=== PATIENT | female | born 1975 | race Hispanic/Latino ===

== ENCOUNTER 2021-10-03 09:38 | Emergency (ER) | payer OTHER ==
--- OUTSIDE RECORDS SUMMARY | 2021-10-03 09:41 | XMS REPORT | Continuity of Care Document ---
:1975 Author Organization [facility] t Address [address] [place] [address] Care Team Providers Name Role Phone Rodríguez DO Attending Clinician Provider, Urgent Care Attending Clinician Unavailable HUBERT, A Attending Clinician Unavailable Hubert PABear Attending Clinician Doctor Unassigned, Name Attending Clinician Unavailable Pcp, Does Not Have A Attending Clinician Lab, Fam Pob I Attending Clinician Unavailable Pob1, Care Clinic Attending Clinician Unavailable ANENE Attending Clinician Unavailable Anene HELIARC WELDER Attending Clinician Problems This patient has no known problems. Allergies, Adverse Reactions, Alerts Allergy Allergy Status Severity Reaction(s) Onset Inactive Treating Comm ents Source Name Type Date Date Clinician NO KNOWN Drug Active Univers ALLERGIE Class [facility] Medications This patient has no known medications. Procedures This patient has no known procedures. Encounters Start End Encounter Admission Attending Care Care Encounter Source Date/Time Date/Time Type Type Clinicians Facility Department ID 2021-07-01 Emergency [facility] [id number] Univers 21:42:19 [facility] 2020-06-09 2020-06-09 Emergency [facility] [id number] 16:34:00 18:47:00 Davy Radha [id number] [place] [id number] [place] [id number] 2020-06-09 2020-06-09 Urgent Provider, [facility] [id number] 15:30:35 18:07:10 Care [facility] [id number] Care [place] [id number] Professio [phone] nal [address] One 2020-06-09 2020-06-09 Outpatient R [facility] [id number] Univers 15:40:00 15:40:00 ity [facility] 2020-06-09 2020-06-09 [facility] [id number] Univers 15:40:00 15:40:00 JD ity [facility] 2020-06-09 2020-06-09 [facility] [id number] 00:00:00 00:00:00 Jd [facility] [id number] Surgical [id number] Specialti [phone] es [address] [place] 2020-06-09 2020-06-09 Orders Doctor BURAK [id number] 00:00:00 00:00:00 Only Unassigned, BENEDICT [id number] [facility] [id number] 2020-04-02 2020-04-02 Outpatient R [facility] [id number] Univers 08:00:00 08:00:00 [id number] ity [facility] 2020-04-02 2020-04-02 Outpatient R [facility] [id number] Univers 08:00:00 08:00:00 ity of [facility] 2020-03-27 2020-03-27 Outpatient R [facility] [id number] Univers 08:40:00 08:40:00 [id number] ity [facility] 2020-03-27 2020-03-27 Outpatient R [facility] [id number] Univers 08:40:00 08:40:00 ity of [facility] 2020-03-26 2020-03-26 Outpatient R [facility] [id number] Univers 14:40:00 14:40:00 [id number] ity of [facility] 2020-03-26 2020-03-26 Outpatient R [facility] [id number] Univers 14:40:00 14:40:00 ity of [facility] 2020-03-20 2020-03-20 Telephone Pcp, BURAK [id number] 00:00:00 00:00:00 Patient BENEDICT [id number] Does [facility] [id number] Have A [id number] 2020-03-20 2020-03-20 Telephone Lab, [facility] [id number] 00:00:00 00:00:00 Fam Pob I Health [id number] [place] [id number] Professio [phone] [place] [address] Office Building [facility] 2020-03-19 2020-03-19 Outpatient R [facility] [id number] Univers 10:50:00 10:50:00 ity [facility] 2020-03-19 2020-03-19 Outpatient R [facility] [id number] Univers 10:50:00 10:50:00 [id number] [facility] 2020-03-19 2020-03-19 Laboratory Lab, [facility] [id number] 10:09:08 10:29:08 Only Fam Pob I Health [id number] [place] [id number] Professio [phone] [place] [address] [address] 2020-03-11 2020-03-11 Urgent Pob1, Acute [facility] [id number] 14:31:41 14:51:41 [facility] [id number] [place] [id number] Professio [phone] [place] [address] [address] 2020-03-11 2020-03-11 Outpatient R [facility] [id number] Univers 14:40:00 14:40:00 [id number] ity [facility] 2020-03-11 2020-03-11 Outpatient R [facility] [id number] Univers 14:40:00 14:40:00 ity [facility] 2020-03-11 2020-03-11 Outpatient R BIANCA, [facility] [id number] Univers 14:20:00 14:20:00 LILIANE ity [facility] 2020-03-11 2020-03-11 Letter Bianca [facility] [id number] 00:00:00 00:00:00 (Out) [facility] [id number] [place] [id number] [place] [phone] nal [address] One Results This patient has no known results.
[2021-10-03 11:21] LABS: Urine Blood Negative (Negative); Urine Glucose Negative (Negative); Urine Protein Negative (Negative); Urine Specific Gravity 1.015 (1.005-1.030)
--- NOTE | 2021-10-03 11:51 | RAD REPORT ---
EXAM DESCRIPTION: CT - Spine Lumbar Wo Con - 10/03/2021 11:41 am CLINICAL HISTORY: Radiculopathy. LOWER BACK PAIN COMPARISON: CT ABD PELVIS W CONTRAST dated 02/12/2012 TECHNIQUE: Axial noncontrast CT imaging of the lumbar spine was performed with coronal and sagittal re-formatted images. All CT scans are performed using dose optimization technique as appropriate and may include automated exposure control or mA/KV adjustment according to patient size. FINDINGS: No acute lumbar spine fracture seen. No aggressive marrow pattern is seen. Paraspinal tissues are normal in thickness. No paraspinal abscess or hematoma seen. Left kidney appea rs absent. 7 mm degenerative anterolisthesis of L5 on S1 is present with prominent facet hypertrophy changes and a posterior diffuse disc bulge. IMPRESSION: No acute lumbar spine abnormality. Moderately severe L5-S1 spondylosis is present with posterior disc bulge and facet hypertrophy.
[2021-10-03] MEDS ORDERED: dexAMETHasone 4 MG/ML VIAL ONE (12:12)
[2021-10-03] MEDS ORDERED: KETOROLAC 30 MG/ML INJ ONE (12:12)
--- NOTE | 2021-10-03 12:35 | EDPHYS ---
Physician Documentation [facility] Name: Brenda Kan Age: 46 yrs Sex: Female : 1975 Arrival Date: 10/03/2021 Time: 09:41 Bed 10 Private MD: ED Physician Arjun Ibarra HPI: 10/03 11:14 This 46 yrs old Female presents to ER via Ambulatory with complaints of Low rn Back Pain. 11:14 The patient presents with pain that is acute, with no known mechanism of injury. The rn symptoms are located in the low back. The pain radiates to the right leg and left leg. Onset: The symptoms/episode began/occurred 1 month(s) ago. Modifying factors: The patient symptoms are alleviated by nothing, the patient symptoms are aggravated by any movement. Associated signs and symptoms: Pertinent negatives: abdominal pain, fever, hematuria, incontinence, nausea, numbness, tingling, urinary retention, vomiting, weakness. Severity of symptoms: At their worst the symptoms were moderate, in the emergency department the symptoms have improved. The patient has experienced similar episodes in the past. The patient has not recently seen a physician. Patient reports 1 month of left lower back pain, radiates to both legs and feels achy. States legs feel weak but when pressed states more achiness and pain not true weakness. Is ambulatory and no recent falls. Denies any recent trauma. Reports this has been going on for 1 month and finally felt the need to be evaluated. No bowel or bladder complaints/incontinence/retention. Reports feels burning sensation from back to back of both thighs. Has had back injections in the past but no surgery.. Historical: - Allergies: 09:59 No Known Allergies; ss - Home Meds: :59 None [Active]; ss - PMHx: 09:59 Endometrosis; ss - PSHx: 09:59 partial hysterectomy; Kidey donor; ss - Immunization history:: Adult Immunizations up to date. - Social history:: Smoking status: Patient denies any tobacco usage or history of. - Family history:: not pertinent. - Hospitalizations: : No recent hospitalization is reported. ROS: 11:14 Constitutional: Negative for fever, chills, and weight loss, Eyes: Negative for injury, rn pain, redness, and discharge, Neck: Negative for injury, pain, and swelling, Cardiovascular: Negative for chest pain, palpitations, and edema, Respiratory: Negative for shortness of breath, cough, wheezing, and pleuritic chest pain, Abdomen/GI: Negative for abdominal pain, nausea, vomiting, diarrhea, and constipation, Back: Positive for lower back pain, negative for injury : Negative for injury, bleeding, discharge, and swelling, MS/Extremity: Negative for injury and deformity, Skin: Negative for injury, rash, and discoloration, Neuro: Negative for headache, weakness, numbness, tingling, and seizure. Exam: 11:14 Constitutional: This is a well developed, well nourished patient who is awake, alert, rn and in no acute distress. Head/Face: Normocephalic, atraumatic. Cardiovascular: Regular rate and rhythm. No pulse deficits. Respiratory: No increased work of breathing, no retractions or nasal flaring. Abdomen/GI: Soft, non-tender Back: No spinal tenderness. No costovertebral tenderness. Mild left lower back tenderness without swelling or mass Skin: Warm, dry with normal turgor. Normal color with no rashes, no lesions, and no evidence of cellulitis. MS/ Extremity: Pulses equal, no cyanosis. Neurovascular intact. Full, normal range of motion. Equal circumference. Neuro: Awake and alert, GCS 15, oriented to person, place, time, and situation. Cranial nerves II-XII grossly intact. Motor strength 5/5 in all extremities. Sensory grossly intact. Cerebellar exam normal. Normal gait. Normal lower extremity reflexes Vital Signs: 09:57 Pulse 72; Resp 16; Temp 98.2(O); Pulse Ox 99% on R/A; Weight 86.18 kg; Height 5 ft. 0 ss in. (152.40 cm); Pain 8/10; 09:59 BP 100 / 85; ss 12:17 BP 109 / 88; Pulse 76; Resp 18; Pulse Ox 100% on R/A; Pain 6/10; ld1 09:57 Body Mass Index 37.11 (86.18 kg, 152.40 cm) ss NIH Stroke Scale Scores: 10:50 NIHSS Score: 0 ss MDM: 10:50 Patient medically screened. rn 12:11 Differential diagnosis: strain, sciatica, Herniated disc UTI. Data reviewed: vital rn signs, nurses notes, lab test result(s), radiologic studies, CT scan, and as a result, I will discharge patient. Counseling: I had a detailed discussion with the patient and/or guardian regarding: the historical points, exam findings, and any diagnostic results supporting the discharge/admit diagnosis, lab results, radiology results, the need for outpatient follow up, to return to the emergency department if symptoms worsen or persist or if there are any questions or concerns that arise at home. Response to treatment: the patient's symptoms have mildly improved after treatment, and as a result, I will discharge patient. Special discussion: I discussed with the patient/guardian in detail that at this point there is no indication for admission to the hospital. It is understood, however, that if the symptoms persist or worsen the patient needs to return immediately for re-evaluation. Based on the history and exam findings, there is no indication for further emergent testing or inpatient evaluation. I discussed with the patient/guardian the need to see the back specialist for further evaluation of the symptoms. 10/03 11:20 Order name: Urine Dipstick-Ancillary; Complete Time: 11:29 EDMS 10/03 11:02 Order name: CT Lumbar Spine Wo Con; Complete Time: 12:07 rn 10/03 11:03 Order name: Urine Dipstick-Ancillary (obtain specimen); Complete Time: 11:17 rn Administered Medications: 12:16 Drug: Decadron (dexamethasone) 10 mg Route: IM; Site: left gluteus; ld1 12:16 Drug: Ketorolac 30 mg Route: IM; Site: left gluteus; ld1 Disposition Summary: 10/03/21 12:35 Discharge Ordered Location: Home rn Problem: an ongoing problem rn Symptoms: have improved rn Condition: Stable rn Diagnosis - Radiculopathy, lumbosacral region rn Followup: rn - With: Private Physician - When: As needed - Reason: Recheck today's complaints, Re-evaluation by your physician Discharge Instructions: - Discharge Summary Sheet rn - Lumbosacral Radiculopathy rn - Pinched Nerve rn Forms: - Medication Reconciliation Form rn - Thank You Letter rn - Antibiotic rn anesthesiology - Prescription Opioid Use rn Prescriptions: - Cyclobenzaprine 10 mg Oral Tablet - take 1 tablet by ORAL route every 8 hours As needed; 15 tablet; Refills: 0, rn Product Selection Permitted - Medrol (Rajan) 4 mg Oral Tablets, Dose Pack - take 1 tablet by ORAL route as directed - follow package instructions; 1 rn packet; Refills: 0, Product Selection Permitted NIH Stroke Scale - NIH Stroke Score Date: 10/03/2021 Time: 10:50 Total Score = 0 1a. Level of Consciousness (LOC) - 0(Alert) 1b. Level of Consciousness (LOC) (Month \T\ Age) - 0(Both) 1c. LOC Commands (Open \T\ Closes Eyes/Vault Mechanic) - 0(Both) 2. Best Gaze (Lateral Gaze Paresis) - 0(Normal) 3. Visual Field Loss - 0(No visual loss) 4. Facial Palsy - 0(Normal) 5a. Left Arm: Motor (10-second hold) - 0(No drift) 5b. Right Arm: Motor (10-second hold) - 0(No drift) 6a. Left Leg: Motor (5-second hold - always test supine) - 0(No drift) 6b. Right Leg: Motor (5-second hold - always test supine) - 0(No drift) 7. Limb Ataxia (finger/nose \T\ heel/richardson - test with eyes open) - 0(Absent) 8. Sensory Loss (pinprick arms/legs/face) - 0(Normal) 9. Best Language: Aphasia (description/naming/reading) - 0(No aphasia) 10. Dysarthria (speech clarity - read or repeat words) - 0(Normal) 11. Extinction and Inattention (visual/tactile/auditory/spatial/personal) - 0(No abnormality) Initials: ss Signatures: Dispatcher [employer] EDMS Arjun Ibarra MD MD rn Smirch, Shelby, RN RN ss Jessa Moreno RN RN ld1 Corrections: (The following items were deleted from the chart) 11:17 11:03 Urine Test ordered. rn ss
--- NOTE | 2021-10-03 12:35 | ER ---
Nurse's Notes [facility] Name: Brenda Kan Age: 46 yrs Sex: Female : 1975 Arrival Date: 10/03/2021 Time: 09:41 Bed 10 Private MD: Diagnosis: Radiculopathy, lumbosacral region Presentation: 10/03 09:57 Chief complaint: Patient states: L low back pain, described as sharp that began this ss morning. Pt states that both of her legs feel weak. Denies urinary s/s. Coronavirus screen: Client denies travel out of the [place] in the last 14 days. Ebola Screen: Patient denies exposure to infectious person. Patient denies travel to an Ebola-affected area in the 21 days before illness onset. Initial Sepsis Screen: Does the patient meet any 2 criteria? No. Patient's initial sepsis screen is negative. Does the patient have a suspected source of infection? No. Patient's initial sepsis screen is negative. Risk Assessment: Do you want to hurt yourself or someone else? Patient reports no desire to harm self or others. Onset of symptoms was October 03, 2021. 09:57 Method Of Arrival: Ambulatory ss 09:57 Acuity: ALEN 3 ss Historical: - Allergies: 09:59 No Known Allergies; ss - Home Meds: 09:59 None [Active]; ss - PMHx: 09:59 Endometrosis; ss - PSHx: 09:59 partial hysterectomy; Kidey donor; ss - Immunization history:: Adult Immunizations up to date. - Social history:: Smoking status: Patient denies any tobacco usage or history of. - Family history:: not pertinent. - Hospitalizations: : No recent hospitalization is reported. Screenin:30 Abuse screen: Denies threats or abuse. Denies injuries from another. Nutritional ss screening: No deficits noted. Tuberculosis screening: Never had TB. Fall Risk None identified. Assessment: 10:50 VAN Scoring: Arm Drift: Patients demonstrates NO arm weakness. Patient is VAN Negative. ss Visual Disturbance: No visual disturbance noted. Aphasia: No aphasia noted. Neglect: No neglect noted. 10:50 General: Appears in no apparent distress. comfortable, Behavior is calm, cooperative, ss Denies fever, feeling ill, fatigue, chills. Pain: Complains of pain in L low back Pain currently is 8 out of 10 on a pain scale. Quality of pain is described as sharp, Pain began "this morning when I woke up" per patient Is continuous. Neuro: Level of Consciousness is awake, alert, obeys commands. Cardiovascular: Capillary refill < 3 seconds is brisk in bilateral. Respiratory: Airway is patent Respiratory effort is even, unlabored, Respiratory pattern is regular, symmetrical. EENT: Nares are clear Oral mucosa is moist. Derm: Skin is intact, is healthy with good turgor, Skin is dry, Skin is pink, warm \\T\\ dry. normal. 12:17 General: Appears in no apparent distress. comfortable, Behavior is calm, cooperative, ld1 appropriate for age. Pain: Complains of pain in left leg and right leg. Neuro: Level of Consciousness is awake, alert, obeys commands, Oriented to person, place, time, situation. Cardiovascular: Capillary refill < 3 seconds Patient's skin is warm and dry. Respiratory: Airway is patent Respiratory effort is even, unlabored, Respiratory pattern is regular, symmetrical. Vital Signs: 09:57 Pulse 72; Resp 16; Temp 98.2(O); Pulse Ox 99% on R/A; Weight 86.18 kg; Height 5 ft. 0 ss in. (152.40 cm); Pain 8/10; 09:59 BP 100 / 85; ss 12:17 BP 109 / 88; Pulse 76; Resp 18; Pulse Ox 100% on R/A; Pain 6/10; ld1 09:57 Body Mass Index 37.11 (86.18 kg, 152.40 cm) ss NIH Stroke Scale Scores: 10:50 NIHSS Score: 0 ss ED Course: 09:41 Patient arrived in ED. as 09:59 Triage completed. ss 09:59 Arm band placed on right wrist. ss 10:50 Arjun Ibarra MD is Attending Physician. rn 11:29 Conchita Castillo RN is Primary Nurse. ss 11:30 Patient has correct armband on for positive identification. Bed in low position. Call ss light in reach. 11:30 No provider procedures requiring assistance completed. Patient did not have IV access ss during this emergency room visit. 11:40 CT Lumbar Spine Wo Con In Process Unspecified. EDMS Administered Medications: 12:16 Drug: Decadron (dexamethasone) 10 mg Route: IM; Site: left gluteus; ld1 12:16 Drug: Ketorolac 30 mg Route: IM; Site: left gluteus; ld1 Outcome: 12:35 Discharge ordered by . rn 12:59 Discharged to home ambulatory. ld1 12:59 Condition: stable 12:59 Discharge instructions given to patient, Instructed on discharge instructions, follow up and referral plans. medication usage, Demonstrated understanding of instructions, follow-up care, medications, Prescriptions given X 2. 13:00 Patient left the ED. ld1 NIH Stroke Scale - NIH Stroke Score Date: 10/03/2021 Time: 10:50 Total Score = 0 1a. Level of Consciousness (LOC) - 0(Alert) 1b. Level of Consciousness (LOC) (Month \\T\\ Age) - 0(Both) 1c. LOC Commands (Open \\T\\ Closes Eyes/Loan Review Officer) - 0(Both) 2. Best Gaze (Lateral Gaze Paresis) - 0(Normal) 3. Visual Field Loss - 0(No visual loss) 4. Facial Palsy - 0(Normal) 5a. Left Arm: Motor (10-second hold) - 0(No drift) 5b. Right Arm: Motor (10-second hold) - 0(No drift) 6a. Left Leg: Motor (5-second hold - always test supine) - 0(No drift) 6b. Right Leg: Motor (5-second hold - always test supine) - 0(No drift) 7. Limb Ataxia (finger/nose \\T\\ heel/richardson - test with eyes open) - 0(Absent) 8. Sensory Loss (pinprick arms/legs/face) - 0(Normal) 9. Best Language: Aphasia (description/naming/reading) - 0(No aphasia) 10. Dysarthria (speech clarity - read or repeat words) - 0(Normal) 11. Extinction and Inattention (visual/tactile/auditory/spatial/personal) - 0(No abnormality) Initials: ss Signatures: Dispatcher [employer] Ofelia Antoine Roman, MD MD rn Smirch, Shelby, RN RN ss Jessa Moreno RN RN ld1 Corrections: (The following items were deleted from the chart) 10:00 09:57 BP 146 / 100; Pulse 72bpm; Resp 16bpm; Pulse Ox 99% RA; Temp 98.2F Oral; ss 86.18 kg; Height 5 ft. 0 in.; BMI: 37.1; Pain 8/10; ss
[2021-10-03 13:14] VITALS: TEMP 98.2
[2021-10-03 13:16] VITALS: BP 109/88; O2SAT 100
== END 2021-10-03 13:00 | disposition home or self-care (01) ==
LOC: ER 09:38
DX: M54.17 Radiculopathy, lumbosacral region (principal)
CPT/HCPCS: 81003; 72131; J1100; 96372; 99283

== ENCOUNTER 2022-11-17 10:53 | Emergency (ER) | payer OTHER ==
--- OUTSIDE RECORDS SUMMARY | 2022-11-17 10:57 | XMS REPORT | Continuity of Care Document ---
:1975 Author Organization [facility] t Address [address] [place] [address] Care Team Providers Name Role Phone VICTORINOMICHAEL Attending Clinician Unavailable Davy Rodríguez DO Attending Clinician Provider, [facility] Attending Clinician Unavailable ANA MARÍA MEIER Attending Clinician Unavailable Ana María Hines Attending Clinician Doctor Unassigned, [place] Attending Clinician Unavailable Pcp, Patient Does Not Have A Attending Clinician +[id number]- [phone] Lab, Adc Fam Pob I Attending Clinician Unavailable Pob1, Acute Care Clinic Attending Clinician Unavailable KRISTAL VALENZUELA Attending Clinician Unavailable Kristal Cervantes Attending Clinician Payers Payer Name Policy Type Policy Number Effective Date Expiration Date S tori MARIA E [facility] 9 [id number] 2022 00:00:00 SILVER $30 4000 BASIC 94 Problems This patient has no known problems. Allergies, Adverse Reactions, Alerts Allergy Allergy Status Severity Reaction(s) Onset Inactive Treating Comm ents Source Name Type Date Date Clinician NO KNOWN Drug Active Univers ALLERGIE Class [facility] Medications This patient has no known medications. Procedures This patient has no known procedures. Encounters Start End Encounter Admission Attending Care Care Encounter Source Date/Time Date/Time Type Type Clinicians Facility Department ID 2021-07-01 Emergency [facility] [id number] Univers 21:42:19 [facility] 2022-11-27 2022-11-27 Outpatient HAKEEMMONSERRAT Reyes [id number] Monserrat 13:00:00 13:00:00 MICHAELPeng Walkerashu patel 2020-06-09 2020-06-09 [facility] [id number] 16:34:00 18:47:00 Davy Garcia [id number] [place] [id number] [place] [id number] 2020-06-09 2020-06-09 Urgent Provider, [facility] [id number] 15:30:35 18:07:10 Care [facility] [id number] Care Rena Lara [id number] Professio [phone] nal [address] 2020-06-09 2020-06-09 [facility] [id number] Univers 15:40:00 15:40:00 ANA MAR[facility] 2020-06-09 2020-06-09 [facility] [id number] 00:00:00 00:00:00 Ana María A [facility] [id number] Surgical [id number] Specialti [id number] Rena Lara 2020-06-09 2020-06-09 Orders Doctor BURAK [id number] 00:00:00 00:00:00 Only Unassigned, BENEDICT [id number] [place] [facility] [id number] 2020-04-02 2020-04-02 Outpatient R [facility] [id number] Univers 08:00:00 08:00:00 [facility] 2020-03-27 2020-03-27 Outpatient R [facility] [id number] Univers 08:40:00 08:40:00 ity [facility] 2020-03-26 2020-03-26 Outpatient R [facility] [id number] Univers 14:40:00 14:40:00 ity [facility] 2020-03-20 2020-03-20 Telephone PcpBURAK [id number] 00:00:00 00:00:00 Patient BENEDICT [id number] Does Not HOSPITAL [id number] Have A [id number] 2020-03-20 2020-03-20 Telephone Lab, [facility] [id number] 00:00:00 00:00:00 Fam Pob I Health [id number] Rena Lara [id number] Professio [phone] nal [address] 2020-03-19 2020-03-19 Outpatient R [facility] [id number] Univers 10:50:00 10:50:00 [facility] 2020-03-19 2020-03-19 Laboratory Lab, [facility] [id number] 10:09:08 10:29:08 Only Fam Pob I Health [id number] Rena Lara [id number] Professio [phone] nal [facility] [address] 2020-03-11 2020-03-11 Urgent Pob1, Acute [facility] [id number] 14:31:41 14:51:41 Care [facility] [id number] Rena Lara [id number] Professio [phone] nal [facility] [address] 2020-03-11 2020-03-11 Outpatient R [facility] [id number] Univers 14:40:00 14:40:00 [facility] 2020-03-11 2020-03-11 [facility] [id number] Univers 14:20:00 14:20:00 KRISTAL [facility] 2020-03-11 2020-03-11 Letter [facility] [id number] 00:00:00 00:00:00 (Out) [facility] [id number] Rena Lara [id number] Professio [id number] nal [facility] Results This patient has no known results.
[2022-11-17] MEDS ORDERED: ONDANSETRON 4 MG/2 ML VIAL ONE (11:52)
[2022-11-17] MEDS ORDERED: MORPHINE 4 MG/ML SYR ONE (11:52)
[2022-11-17] MEDS ORDERED: NA CHLORIDE 0.9% 1,000 ML ONE (11:53)
[2022-11-17 12:08] LABS: Absolute Lymphocytes (CBC) 0.6 K/uL (0.7-4.9); Hematocrit 43.9 % (36.0-45.0); Lymphocytes % 7.9 % (15.3-44.8); MPV 8.6 fL (7.6-11.3); RBC Red Blood Cell Count 4.72 M/uL (3.86-4.86)
[2022-11-17 12:26] LABS: Albumin 3.4 g/dL (3.4-5.0); Bilirubin Direct 0.1 mg/dL (0-0.2); Bilirubin Total 0.4 mg/dL (0.2-1.0); Magnesium 1.9 mg/dL (1.6-2.4); Potassium 3.8 mEq/L (3.5-5.1); Protein, Total 6.6 g/dL (6.4-8.2); Troponin High Sensitivity 4.1 pg/mL (<58.9)
--- NOTE | 2022-11-17 12:31 | RAD REPORT ---
[facility] DES[facility] 12[facility]20 pm CLINICAL HISTORY: CHEST PAIN COMPARISON: Chest Single View dated 09/24/2016; CHEST SINGLE VIEW dated 06/17/2006 TECHNIQUE: Portable AP view of the chest. FINDINGS: The lungs are clear. No pneumothorax or effusion. The cardiomediastinal contours are unrem arkable. IMPRESSION: No acute cardiopulmonary process.
[2022-11-17 12:45] LABS: SARS-COV-2 RT PCR NEGATIVE (NEGATIVE)
--- NOTE | 2022-11-17 13:10 | EDPHYS ---
Physician Documentation [facility] Name: Brenda Kan Age: 47 yrs Sex: Female : 1975 Arrival Date: 11/17/2022 Time: 10:57 Bed 6 Private MD: Santana Mahmood ED Physician Lonnie Moralez HPI: 11/17 11:05 This 47 yrs old Female presents to ER via Wheelchair with complaints of Chest jh7 Pain, Vomiting. 11:05 Onset: The symptoms/episode began/occurred 2 day(s) ago. jh7 11:05 Associated signs and symptoms: Pertinent positives: chest pain, headache, vomiting, jh7 body aches, Pertinent negatives: abdominal pain, diarrhea, fever. 11:05 47-year-old female complains of chest pain, headache, and body aches x2 days. Also [facility] reports 1 episode of vomiting this morning. Denies diarrhea, fever, and abdominal pain. Denies any past medical history. Patient of Dr. Nassar.. Historical: - Allergies: 11:05 No Known Allergies; hb - PMHx: 11:05 Endometrosis; hb - PSHx: 11:05 Kidey donor; partial hysterectomy; hb - Immunization history:: Adult Immunizations up to date. - Social history:: Smoking status: Patient denies any tobacco usage or history of. ROS: 11:05 Eyes: Negative for injury, pain, redness, and discharge, ENT: Negative for injury, jh7 pain, and discharge, Neck: Negative for injury, pain, and swelling, Respiratory: Negative for shortness of breath, cough, wheezing, and pleuritic chest pain. 11:05 Back: Negative for injury and pain, MS/Extremity: Negative for injury and deformity, Skin: Negative for injury, rash, and discoloration. 11:05 Constitutional: Positive for body aches, malaise, Negative for fever. 11:05 Cardiovascular: Positive for chest pain, Negative for palpitations. 11:05 Abdomen/GI: Positive for nausea and vomiting, Negative for abdominal pain, diarrhea. 11:05 Neuro: 11:05 All other systems are negative. Exam: 11:05 Head/Face: Normocephalic, atraumatic. Eyes: Pupils equal round and reactive to light, jh7 extra-ocular motions intact. Lids and lashes normal. Conjunctiva and sclera are non-icteric and not injected. Cornea within normal limits. Periorbital areas with no swelling, redness, or edema. Neck: Trachea midline, no thyromegaly or masses palpated, and no cervical lymphadenopathy. Supple, full range of motion without nuchal rigidity, or vertebral point tenderness. No Meningismus. Cardiovascular: Regular rate and rhythm with a normal S1 and S2. No gallops, murmurs, or rubs. Normal PMI, no JVD. No pulse deficits. Respiratory: Lungs have equal breath sounds bilaterally, clear to auscultation and percussion. No rales, rhonchi or wheezes noted. No increased work of breathing, no retractions or nasal flaring. Abdomen/GI: Soft, non-tender, with normal bowel sounds. No distension or tympany. No guarding or rebound. No evidence of tenderness throughout. Back: No spinal tenderness. No costovertebral tenderness. Full range of motion. Skin: Warm, dry with normal turgor. Normal color with no rashes, no lesions, and no evidence of cellulitis. MS/ Extremity: Pulses equal, no cyanosis. Neurovascular intact. Full, normal range of motion. Neuro: Awake and alert, GCS 15, oriented to person, place, time, and situation. Motor strength 5/5 in all extremities. Sensory grossly intact. Normal gait. 11:05 Constitutional: The patient appears alert, awake, in obvious pain, uncomfortable. Vital Signs: 11:03 BP 124 / 63; Pulse 76; Resp 18; Temp 98.8(TE); Pulse Ox 98% on R/A; Weight 81.65 kg; hb Height 5 ft. 0 in. ; Pain 7/10; 12:15 BP 129 / 83; Pulse 72; Resp 16; Pulse Ox 98% ; bp 11:03 Body Mass Index 35.15 (81.65 kg, 152.4 cm) hb 11:03 Pain Scale: Adult hb MDM: 10:[address] [facility] 11/17 11:06 Order name: CBC with Diff; Complete Time: 12:24 [facility] 11/17 11:06 Order name: EKG; Complete Time: 11:07 [facility] 11/17 11:06 Order name: Cardiac monitoring; Complete Time: 11:36 [facility] 11/17 11:06 Order name: EKG - Nurse/Tech; Complete Time: 11:09 [facility] 11/17 11:06 Order name: IV Saline Lock; Complete Time: 12:18 [facility] 11/17 11:06 Order name: Labs collected and sent; Complete Time: 12:18 [facility] 11/17 11:06 Order name: O2 Per Protocol; Complete Time: 11:37 [facility] 11/17 11:06 Order name: O2 Sat Monitoring; Complete Time: 11:37 [facility] 11/17 11:06 Order name: Basic Metabolic Panel; Complete Time: 12:32 [facility] 11/17 11:06 Order name: LFT's; Complete Time: 12:32 [facility] 11/17 11:06 Order name: Magnesium; Complete Time: 12:32 [facility] 11/17 11:06 Order name: Troponin HS; Complete Time: 12:32 [facility] 11/17 11:06 Order name: Lipase; Complete Time: 12:32 [facility] 11/17 11:06 Order name: XRAY Chest (1 view); Complete Time: 12:32 [facility] 11/17 11:06 Order name: COVID-19/FLU A+B; Complete Time: 12:57 [facility] EC:05 Rate is 82 beats/min. Rhythm is regular. QRS [place] is Normal. DE interval is normal at [facility] 140 msec. QRS interval is normal at 70 msec. QT interval is normal at 368 msec. No Q waves. T waves are Normal. Clinical impression: NSR w/ Non-specific ST/T Changes. Administered Medications: 11:40 Drug: morphine IVP or IV 4 mg Route: IVP; Infused Over: 4 mins; Site: right forearm; bp 13:09 Follow up: Response: Pain is decreased bp 11:40 Drug: Ondansetron IVP 4 mg Route: IVP; Site: right forearm; bp 13:10 Follow up: Response: No adverse reaction bp 11:40 Drug: NS 0.9% IV 1000 ml Route: IV; Rate: 1 bolus; Site: right forearm; bp 12:45 Drug: Famotidine IVP 20 mg Route: IVP; Site: right forearm; bp Disposition Summary: 11/17/22 13:10 Discharge Ordered Location: Home [facility] Problem: [facility] Symptoms: have improved [facility] Condition: Stable [facility] Diagnosis - Viral Syndrome [facility] - Flu-like illness [facility] Followup: [facility] - With: Santana Mahmood MD - When: 2 - 3 days - Reason: Recheck today's complaints Forms: - Medication Reconciliation Form 7 - Thank You Letter 7 - Antibiotic Education [facility] - Prescription Opioid Use [facility] Signatures: Dispatcher [employer] Ivana Beltran, RN RN Jj Veras RN RN bp Hazel Husain, PUTTYING AND CALKING SUPERVISOR PUTTYING AND CALKING SUPERVISOR [facility] Corrections: (The following items were deleted from the chart) 11:29 11:05 Associated signs and symptoms: Pertinent positives: chest pain, headache, 7 vomiting, body aches, Pertinent negatives: abdominal pain, diarrhea, fever, 7
--- NOTE | 2022-11-17 13:10 | ER ---
Nurse's Notes [facility] Name: Brenda Kan Age: 47 yrs Sex: Female : 1975 Arrival Date: 11/17/2022 Time: 10:57 Bed 6 Private MD: Santana Mahmood Diagnosis: Viral Syndrome;Flu-like illness Presentation: 11/17 11:03 Chief complaint: Chest pain, headache, fever, body aches, and nausea x 2 days, vomit x hb 1 today. Coronavirus screen: Client presents with at least one sign or symptom that may indicate coronavirus-19. Standard/surgical mask placed on the client. Provider contacted for isolation considerations. Ebola Screen: No symptoms or risks identified at this time. Initial Sepsis Screen: Does the patient meet any 2 criteria? No. Patient's initial sepsis screen is negative. Does the patient have a suspected source of infection? No. Patient's initial sepsis screen is negative. Risk Assessment: Do you want to hurt yourself or someone else? Patient reports no desire to harm self or others. Onset of symptoms was November 16, 2022. 11:03 Method Of Arrival: Wheelchair hb 11:03 Acuity: ALEN 3 hb Triage Assessment: 11:05 General: Appears in no apparent distress. Behavior is cooperative, anxious. Pain: Pain hb currently is 7 out of 10 on a pain scale. Neuro: Level of Consciousness is awake, alert, obeys commands, Oriented to person, place, time, situation. Cardiovascular: Reports chest pain, Patient's skin is warm and dry. Respiratory: Respiratory effort is even, unlabored, Respiratory pattern is regular, symmetrical. GI: Reports nausea, vomiting. Historical: - Allergies: 11:05 No Known Allergies; hb - PMHx: 11:05 Endometrosis; hb - PSHx: 11:05 Kidey donor; partial hysterectomy; hb - Immunization history:: Adult Immunizations up to date. - Social history:: Smoking status: Patient denies any tobacco usage or history of. Screenin:00 [facility] ED Fall Risk Assessment (Adult) History of falling in the last 3 months, bp including since admission No falls in past 3 months (0 pts). Abuse screen: Denies threats or abuse. Denies injuries from another. Nutritional screening: No deficits noted. Tuberculosis screening: No symptoms or risk factors identified. Assessment: 11:10 General: SEE TRIAGE NOTE. bp Vital Signs: 11:03 BP 124 / 63; Pulse 76; Resp 18; Temp 98.8(TE); Pulse Ox 98% on R/A; Weight 81.65 kg; hb Height 5 ft. 0 in. ; Pain 7/10; 12:15 BP 129 / 83; Pulse 72; Resp 16; Pulse Ox 98% ; bp 11:03 Body Mass Index 35.15 (81.65 kg, 152.4 cm) hb 11:03 Pain Scale: Adult hb ED Course: 10:57 Patient arrived in ED. mr 10:57 Santana Mahmood MD is Private Physician. mr 10:57 Hazel [facility]NP [facility] 10:57 Lonnie Moralez MD is Attending Physician. 7 11:05 Triage completed. hb 11:06 Arm band placed on. hb 11:09 EKG completed in triage. Results shown to MD. hb 11:24 Patient has correct armband on for positive identification. Bed in low position. Side mm9 rails up X 1. Adult w/ patient. Warm blanket given. Client placed on continuous cardiac and pulse oximetry monitoring. NIBP monitoring applied. couture alterations dressmaker on. Pulse ox on. NIBP on. 11:24 EKG done, by ED staff, reviewed by Lonnie Moralez MD. mm9 11:36 Jj Millan, RN is Primary Nurse. bp 11:40 Inserted saline lock: 20 gauge in right forearm, using aseptic technique. Blood bp collected. 12:02 COVID-19/FLU A+B Sent. ks8 12:22 XRAY Chest (1 view) In Process Unspecified. EDMS 13:09 Santana Mahmood MD is Referral Physician. [facility] Administered Medications: 11:40 Drug: morphine IVP or IV 4 mg Route: IVP; Infused Over: 4 mins; Site: right forearm; bp 13:09 Follow up: Response: Pain is decreased bp 11:40 Drug: Ondansetron IVP 4 mg Route: IVP; Site: right forearm; bp 13:10 Follow up: Response: No adverse reaction bp 11:40 Drug: NS 0.9% IV 1000 ml Route: IV; Rate: 1 bolus; Site: right forearm; bp 12:45 Drug: Famotidine IVP 20 mg Route: IVP; Site: right forearm; bp Outcome: 13:10 Discharge ordered by jhIsidro Signatures: Dispatcher [employer] Laurel Hodges Heather, RN RN Jj Veras RN RN bp Hadash, Jennifer, CORPORATE TUTOR CORPORATE TUTOR 7 Maday Coronel mm9 Joaquin Grant pa8
[2022-11-17] MEDS ORDERED: FAMOTIDINE 20 MG/2 ML VIAL IV ONE (13:11)
[2022-11-17 15:27] VITALS: TEMP 98.8
[2022-11-17 15:29] VITALS: BP 111/78; O2SAT 99
== END 2022-11-17 14:17 | disposition home or self-care (01) ==
LOC: ER 10:53
DX: J11.1 Influenza due to unidentified influenza virus with other respiratory manifestations (principal); B34.9 Viral infection, unspecified; Z20.822 Contact with and (suspected) exposure to COVID-19
CPT/HCPCS: 96361; 85025; 80048; 36415; 83735; 80076; 84484; 83690; 0240U; 71045; 96375; 96374; 99285; J2405; J7030

== ENCOUNTER 2023-03-29 11:14 | Emergency (ER) | payer OTHER ==
--- OUTSIDE RECORDS SUMMARY | 2023-03-29 11:19 | XMS REPORT | Continuity of Care Document ---
:1975 Author Organization Formerly [facility] t Address [address] [facility] [address] [place] [address] Care Team Providers Name Role Phone MICHAEL GLEASON Attending Clinician Unavailable BETH SRIVASTAVA Attending Clinician Unavailable KIYA CADET Attending Clinician Unavailable KAMRAN MCKEON Attending Clinician Unavailable LAB90 Attending Clinician Unavailable Davy Rodríguez DO Attending Clinician Provider, [facility] Attending Clinician Unavailable ANA MARÍA MEIER Attending Clinician Unavailable Ana María Hines Attending Clinician Doctor Unassigned, [place] Attending Clinician Unavailable Pcp, Patient Does Not Have A Attending Clinician +[id number] [phone] Lab, Adc Fam Pob I Attending Clinician Unavailable Pob1, Acute Care Clinic Attending Clinician Unavailable KRISTAL VALENZUELA Attending Clinician Unavailable Kristal Cervantes Attending Clinician Payers Payer Name Policy Type Policy Number Effective Date Expiration Date S tori AETSIRIA MP CVS 9 [id number] 2022 00:00:00 SILVER $30 [id number] BASIC 94 Problems This patient has no known problems. Allergies, Adverse Reactions, Alerts Allergy Allergy Status Severity Reaction(s) Onset Inactive Treating Comm ents Source Name Type Date Date Clinician NO KNOWN Drug Active Univers ALLERGIE Class ity of S [facility] Social History Social Habit Start Date Stop Date Quantity Comments Source Gender identity Monserrat berg - External Sexual orientation Monserrat Garcia - External Alcohol intake 2023-02-26 2023-02-26 .14 /d Monserrat murray - 00:00:00 00:00:00 External History of Social 2022-11-24 2022-11-24 Monserrat Garcia - function 00:00:00 00:00:00 External Sex [birth year] Jose Garcia - 00:00:00 00:00:00 External Smoking Status Start Date Stop Date Source Never smoked tobacco Monserrat piña - External Medications Ordered Filled Start Stop Current Ordering Indication Dosage Frequency Signature Comments Components Source Medication Medication Date Date Medication? Clinician (SIG) Name Name Phentermine Yes [id number] 1{tbl} Take 1 Monserrat HCl 8 MG 6-14 tablet by Seybol d oral Tablet 00:00: mouth 2 - 00 times Externa daily l Phentermine 2022-0 Yes [id number] 60{tbl} Take 60 Monserrat HCl 8 MG 5-22 tablets by Seybo ld oral Tablet 00:00: mouth 2 - 00 times Externa daily l Semaglutide 2022-0 Yes [id number] .25mg Inject Monserrat -Weight 5-22 0.25 mg Seybold Management 00:00: into the - (Wegovy) 00 skin once Manager Retail Sales a 0.25 a week l MG/0.5ML subcutaneou s Solution Auto-inject or Semaglutide 2022-0 Yes [id number] .25mg Inject Monserrat -Weight 5-22 0.25 mg Seybold Management 00:00: into the - (Wegovy) 00 skin once Manager [employer] a 0.25 a week l MG/0.5ML subcutaneou s Solution Auto-inject or methylPREDN 2022-0 Yes [id number] 1{shiraz} Take 1 shiraz Monserrat ISolone 4 4-28 by mouth Seybol d MG oral 00:00: See Admin - Tablet 00 Instructio Externa Therapy ns Use as l Pack directed Amoxicillin 2022-0 Yes [id number] 500mg Take 1 Monserrat (AMOXIL) 4-28 capsule Seybold 500 MG oral 00:00: (500 mg - Capsule 00 total) by Externa mouth 3 l times daily methylPREDN 2022-0 Yes [id number] 1{shiraz} Take 1 shiraz Monserrat ISolone 4 4-28 by mouth Seybol d MG oral 00:00: See Admin - Tablet 00 Instructio Externa Therapy ns Use as l Pack directed Amoxicillin 2022-0 Yes [id number] 500mg Take 1 Monserrat (AMOXIL) 4-28 capsule Seybold 500 MG oral 00:00: (500 mg - Capsule 00 total) by Externa mouth 3 l times daily methylPREDN 2022-0 Yes [id number] 1{shiraz} Take 1 shiraz Monserrat ISolone 4 4-28 by mouth Seybol d MG oral 00:00: See Admin - Tablet 00 Instructio Externa Therapy ns Use as l Pack directed Amoxicillin 2022-0 Yes [id number] 500mg Take 1 Monserrat (AMOXIL) 4-28 capsule Seybold 500 MG oral 00:00: (500 mg - Capsule 00 total) by Externa mouth 3 l times daily Diethylprop 2022-0 Yes [id number] 1{tbl} Take 1 Monserrat ion HCl CR 4-24 tablet by Seyb old 75 MG oral 00:00: mouth - TABLET SR 00 every Externa 24 HR morning l Diethylprop 2022-0 Yes [id number] 1{tbl} Take 1 Monserrat ion HCl CR 4-24 tablet by Seyb old 75 MG oral 00:00: mouth - TABLET SR 00 every Externa 24 HR morning l Diethylprop 2022-0 2022- No [id number] 1{tbl} Take 1 Monserrat ion HCl CR 4-24 05-22 tablet by Sey bold 75 MG oral 00:00: 00:00 mouth - TABLET SR 00 :00 every Externa 24 HR morning l Trulicity 2022-0 Yes [id number] .75mg Inject Monserrat 0.75 3-27 0.75 mg Seybold MG/0.5ML 00:00: into the - subcutaneou 00 skin once Ext trevor s Solution a week l Pen-injecto r Trulicity 2022-0 Yes [id number] .75mg Inject Monserrat 0.75 3-27 0.75 mg Seybold MG/0.5ML 00:00: into the - subcutaneou 00 skin once Ext trevor s Solution a week l Pen-injecto r Trulicity 2022-0 2022- No [id number] .75mg Inject Monserrat 0.75 3-27 04-28 0.75 mg Seybold MG/0.5ML 00:00: 00:00 into the - subcutaneou 00 :00 skin once Ext trevor s Solution a week l Pen-injecto r Famotidine 0 Yes 20mg Take 20 mg K elsey (PEPCID) 20 3-17 by mouth 2 Se ybold MG oral 00:00: times - tablet 00 daily Externa l Ondansetron 0 Yes Monserrat (ZOFRAN) 4 3-17 Seybold MG oral 00:00: - TABLET 00 Externa DISPERSIBLE l Famotidine 0 Yes 20mg Take 1 Kelse y (PEPCID) 20 3-17 tablet (20 Se ybold MG oral 00:00: mg total) - tablet 00 by mouth 2 Externa times l daily Ondansetron 0 Yes Monserrat (ZOFRAN) 4 3-17 Seybold MG oral 00:00: - TABLET 00 Externa DISPERSIBLE l Famotidine 0 2022- No 20mg Take 1 Rachel ey (PEPCID) 20 3-17 04-28 tablet (20 S eybold MG oral 00:00: 00:00 mg total) - tablet 00 :00 by mouth 2 Externa times l daily Ondansetron 0 2022- No Kelse y (ZOFRAN) 4 3-17 04-28 Seybold MG oral 00:00: 00:00 - TABLET 00 :00 Externa DISPERSIBLE l Vital Signs Vital Name Observation Time Observation Value Comments Source Systolic blood 2023-01-22 17:52:00 128 mm[Hg] Monserrat Monroeybold - pressure External Diastolic blood 2023-01-22 17:52:00 74 mm[Hg] Kita chaidez Seybold - pressure External Heart rate 2023-01-22 17:52:00 68 /min Monserrat erickson - External Body temperature 2023-01-22 17:52:00 36.44 Kathleen Rachel chamberlain Seybold - External Respiratory rate 2023-01-22 17:52:00 16 /min Rachel chamberlain Seybold - External Body height 2023-01-22 17:52:00 152.4 cm Monserrat S eybold - External Body weight 2023-01-22 17:52:00 82.101 kg Monserrat S eybold - External BMI 2023-01-22 17:52:00 35.35 kg/m2 Monserrat S eybold - External Oxygen saturation in 2023-01-22 17:52:00 96 /min Monserrat Seybold - Arterial blood by External Pulse oximetry Systolic blood 2022-12-29 13:52:00 114 mm[Hg] Monserrat Seybold - pressure External Diastolic blood 2022-12-29 13:52:00 80 mm[Hg] Josese y Seybold - pressure External Heart rate 2022-12-29 13:52:00 59 /min Monserrat Smith eybold - External Body temperature 2022-12-29 13:52:00 35.89 Kathleen Rachel ey Seybold - External Respiratory rate 2022-12-29 13:52:00 15 /min Rachel ey Seybold - External Body height 2022-12-29 13:52:00 152.4 cm Monserrat Smith eybold - External Body weight 2022-12-29 13:52:00 81.647 kg Monserrat S eybold - External BMI 2022-12-29 13:52:00 35.15 kg/m2 Monserrat S eybold - External BMI 2022-12-25 17:53:00 34.76 kg/m2 Monserrat Smith eybold - External Oxygen saturation in 2022-12-25 17:53:00 100 /min Monserrat Jose - Arterial blood by External Pulse oximetry Systolic blood 2022-12-25 17:53:00 118 mm[Hg] Monserrat Seybold - pressure External Diastolic blood 2022-12-25 17:53:00 74 mm[Hg] Kita y Seybold - pressure External Heart rate 2022-12-25 17:53:00 65 /min Monserrat Smith eybold - External Body temperature 2022-12-25 17:53:00 36.72 Kathleen Rachel ey Seybold - External Respiratory rate 2022-12-25 17:53:00 16 /min Rachel ey Seybold - External Body height 2022-12-25 17:53:00 152.4 cm Monserrat Smith eybold - External Body weight 2022-12-25 17:53:00 80.74 kg Monserrat Smith eybold - External Systolic blood 2022-11-27 17:56:00 105 mm[Hg] Monserrat Seybold - pressure External Diastolic blood 2022-11-27 17:56:00 59 mm[Hg] Kita y Seybold - pressure External Heart rate 2022-11-27 17:56:00 79 /min Monserrat Smiht eybold - External Body temperature 2022-11-27 17:56:00 37.11 Kathleen Rachel ey Seybold - External Respiratory rate 2022-11-27 17:56:00 14 /min Rachel chamberlain Seybold - External Body height 2022-11-27 17:56:00 152.4 cm Monserrat Smith eybold - External Body weight 2022-11-27 17:56:00 85.276 kg Monserrat Smith eybold - External BMI 2022-11-27 17:56:00 36.72 kg/m2 Monserrat Smith eybold - External Oxygen saturation in 2022-11-27 17:56:00 99 /min Monserrat Aaronayana - Arterial blood by External Pulse oximetry Procedures This patient has no known procedures. Encounters Start End Encounter Admission Attending Care Care Encounter Source Date/Time Date/Time Type Type Clinicians Facility Department ID 2021-07-01 Emergency [facility] [id number] Univers 21:42:19 [facility] 2023-03-29 2023-03-29 Outpatient MONSERRAT GLEASON [id number] Monserrat 00:00:00 00:00:00 MICHAEL Seybol d 2023-03-09 2023-03-09 Outpatient MONSERRAT GLEASON [id number] Monserrat 14:00:00 14:00:00 MICHAEL Seybol d 2023-02-26 2023-02-26 Outpatient MONSERRAT SRIVASTAVA [id number] Monserrat 14:20:00 14:20:00 BETH Seybol d 2023-02-26 2023-02-26 Outpatient MONSERRAT ARMAS [id number] Monserrat 13:40:00 13:40:00 Seybol d 2023-02-26 2023-02-26 Outpatient MONSERRAT GLEASON [id number] Monserrat 13:00:00 13:00:00 MICHAEL Seybol d 2023-02-26 2023-02-26 Outpatient CAROLAMONSERRAT WALL [id number] Monserrat 00:00:00 00:00:00 BETH Seybol d 2023-02-19 2023-02-19 Outpatient S[facility] [id number] Julián 14:38:59 14:38:59 0619 F Micheal 2023-02-12 2023-02-12 Outpatient MONSERRAT CADET [id number] Monserrat 15:15:00 15:15:00 KIYA Seybol d 2023-02-12 2023-02-12 Outpatient HAKEEML, MONSERRAT ARMAS [id number] Monserrat 00:00:00 00:00:00 MICHAEL Seybol d 2023-01-31 2023-01-31 Outpatient PREMONSERRAT IVEY [id number] Monserrat 00:00:00 00:00:00 KAMRAN Seybol d 2023-01-22 2023-01-22 Outpatient VICTORINO, MONSERRAT ARMAS [id number] Monserrat 13:00:00 13:00:00 MICHAEL Seybol d 2022-12-29 2022-12-29 Outpatient HAKEEML, MONSERRAT ARMAS [id number] Monserrat 09:00:00 09:00:00 MICHAEL Seybol d 2022-12-25 2022-12-25 Outpatient HUNDL, MONSERRAT ARMAS [id number] Monserrat 13:00:00 13:00:00 MICHAEL Seybol d 2022-12-21 2022-12-21 Outpatient LAB90 MONSERRAT ARMAS [id number] Monserrat 16:20:00 16:20:00 Seybol d 2022-12-13 2022-12-13 Outpatient HAKEEML, MONSERRAT ARMAS [id number] Monserrat 00:00:00 00:00:00 MICHAEL Seybol d 2022-12-01 2022-12-01 Outpatient HAKEEML, MONSERRAT ARMAS [id number] Monserrat 00:00:00 00:00:00 MICHAEL Seybol d 2022-11-28 2022-11-28 Outpatient LAB90 MONSERRAT ARMAS [id number] Monserrat 08:40:00 08:40:00 Seybol d 2022-11-27 2022-11-27 Outpatient MONSERRAT GLEASON MONSERRAT [id number] Monserrat 13:00:00 13:00:00 MICHAEL patel 2020-06-09 2020-06-09 Emergency Rodríguez, [facility] [id number] 16:34:00 18:47:00 Davybayron Garcia [id number] [place] [id number] [place] [id number] 2020-06-09 2020-06-09 Urgent Provider, [facility] [id number] 15:30:35 18:07:10 Care [facility] [id number] Care [place] [id number] [facility] [id number] nal [address] 2020-06-09 2020-06-09 [facility] [id number] Univers 15:40:00 15:40:00 ANA MARÍA strange [facility] 2020-06-09 2020-06-09 [facility] [id number] 00:00:00 00:00:00 [facility] [id number] Surgical [id number] Specialti [id number] [address] 2020-06-09 2020-06-09 Orders Doctor BURAK [id number] 00:00:00 00:00:00 Only Unassigned, BENEDICT [id number] [place] [facility] 4.2.7.2.686 [id number] 2020-04-02 2020-04-02 Outpatient R [facility] [id number] Univers 08:00:00 08:00:00 ity [facility] 2020-03-27 2020-03-27 Outpatient R [facility] [id number] Univers 08:40:00 08:40:00 ity [facility] 2020-03-26 2020-03-26 Outpatient R [facility] [id number] Univers 14:40:00 14:40:00 ity [facility] 2020-03-20 2020-03-20 Telephone Pcp, [place] [id number] 00:00:00 00:00:00 Patient BENEDICT [id number] Does Not HOSPITAL 4.2.7.2.686 Have A [id number] 2020-03-20 2020-03-20 Telephone Lab, [facility] [id number] 00:00:00 00:00:00 Fam Pob I Health [id number] [place] [id number] Professio [id number] nal [facility] [address] 2020-03-19 2020-03-19 Outpatient R [facility] [id number] Univers 10:50:00 10:50:00 [facility] 2020-03-19 2020-03-19 Laboratory Lab, [facility] [id number] 10:09:08 10:29:08 Only Fam Pob I Health [id number] [place] [id number] Professio [id number] nal [facility] [address] 2020-03-11 2020-03-11 Urgent Pob1, Acute [facility] [id number] 14:31:41 14:51:41 [facility] Health [id number] [place] [id number] Professio [id number] [place] [address] [address] 2020-03-11 2020-03-11 Outpatient R [facility] [id number] Univers 14:40:00 14:40:00 [facility] 2020-03-11 2020-03-11 Outpatient R GUS [facility] [id number] Univers 14:20:00 14:20:00 KRISTAL [facility] 2020-03-11 2020-03-11 Letter [facility] [id number] 00:00:00 00:00:00 (Out) Kristal Health [id number] [place] [id number] Professio [phone] nal [facility] [address] Results This patient has no known results.
[2023-03-29] MEDS ORDERED: ONDANSETRON 4 MG/2 ML VIAL ONE (11:46)
[2023-03-29] MEDS ORDERED: MORPHINE 4 MG/ML SYR ONE (11:46)
--- NOTE | 2023-03-29 12:10 | RAD REPORT ---
EXAM DESCRIPTION: RAD - Chest Single View - 03/29/2023 11:50 am CLINICAL HISTORY: CHEST PAIN Chest pain. COMPARISON: Chest Single View dated 11/17/2022; Chest Single View dated 09/24/2016; CHEST SINGLE VIEW dated 06/17/2006 FINDINGS: Portable technique limits examination quality. The lungs are grossly clear. The heart is normal in size. No displaced fractures. IMPRESSION: No acute intrathoracic process suspected.
[2023-03-29 12:28] LABS: Absolute Lymphocytes (CBC) 1.6 K/uL (0.7-4.9); Hematocrit 40.9 % (36.0-45.0); Lymphocytes % 25.4 % (15.3-44.8); MCV 93.1 fL (80-100); MPV 9.2 fL (7.6-11.3)
[2023-03-29 12:48] LABS: Protime INR 1.32
[2023-03-29 12:50] LABS: ALT/SGPT 56 U/L (13-56); AST/SGOT 35 U/L (15-37); Albumin 3.2 g/dL (3.4-5.0); Alkaline Phosphatase 99 U/L (45-117); BUN Blood Urea Nitrogen 9 mg/dL (7-18); Bicarbonate 27 mEq/L (21-32); Bilirubin Total 0.3 mg/dL (0.2-1.0); Glomerular Filtration Rate 91 ml/min (=/>90); Glucose Level 91 mg/dL (74-106); Magnesium 1.9 mg/dL (1.6-2.4); NT PRO-BNP 168 pg/mL (<125); Potassium 4.2 mEq/L (3.5-5.1); Protein, Total 6.5 g/dL (6.4-8.2); Sodium Level 139 mEq/L (136-145); Troponin High Sensitivity 3.8 pg/mL (<58.9)
[2023-03-29 12:51] LABS: Bilirubin Direct < 0.1 mg/dL (0-0.2); Bilirubin Indirect, Calculated ND mg/dL (0.2-0.8)
--- NOTE | 2023-03-29 13:19 | ER ---
Nurse's Notes [facility] Name: Brenda Kan Age: 47 yrs Sex: Female : 1975 Arrival Date: 03/29/2023 Time: 11:14 Bed 17 Private MD: MICHAEL GLEASON Diagnosis: Chest pain, unspecified Presentation: 03/29 11:25 Chief complaint: Patient states: PATIENT STATES CHEST PAIN X 3 DAYS ON LEFT SIDE. WORSE db WITH EXERTION AND CONSTANT PAIN. Coronavirus screen: Vaccine status: Patient reports receiving the 2nd dose of the covid vaccine. Client denies travel out of the [place] in the last 14 days. At this time, the client does not indicate any symptoms associated with coronavirus-19. Ebola Screen: Patient negative for fever greater than or equal to 101.5 degrees Fahrenheit, and additional compatible Ebola Virus Disease symptoms Patient denies exposure to infectious person. Patient denies travel to an Ebola-affected area in the 21 days before illness onset. No symptoms or risks identified at this time. Initial Sepsis Screen: Does the patient meet any 2 criteria? No. Patient's initial sepsis screen is negative. Does the patient have a suspected source of infection? No. Patient's initial sepsis screen is negative. Risk Assessment: Do you want to hurt yourself or someone else? Patient reports no desire to harm self or others. Onset of symptoms was March 27, 2023. 11:25 Method Of Arrival: Ambulatory db 11:25 Acuity: ALEN 2 db Triage Assessment: 11:30 General: Appears in no apparent distress. uncomfortable, Behavior is calm, cooperative. db Pain: Complains of pain in chest. Cardiovascular: Reports chest pain. Respiratory: Airway is patent Respiratory effort is even, unlabored, Respiratory pattern is regular, symmetrical. 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 - Social history:: Smoking status: Patient denies any tobacco usage or history of. Screenin:00 [facility] ED Fall Risk Assessment (Adult) History of falling in the last 3 months, db including since admission No falls in past 3 months (0 pts) Confusion or Disorientation No (0 pts) Intoxicated or Sedated No (0 pts) Impaired Gait No (0 pts) Mobility Assist Device Used No (0 pt) Altered Elimination No (0 pt) Score/Fall Risk Level 0 - 2 = Low Risk Oriented to surroundings, Maintained a safe environment. Abuse screen: Denies threats or abuse. Denies injuries from another. Nutritional screening: No deficits noted. Tuberculosis screening: No symptoms or risk factors identified. Assessment: 11:15 Reassessment: Patient appears in no apparent distress at this time. Patient and/or db family updated on plan of care and expected duration. Pain level reassessed. Patient is alert, oriented x 3, equal unlabored respirations, skin warm/dry/pink. CHEST PAIN. General: Appears in no apparent distress. comfortable, Behavior is calm, cooperative. Pain: Complains of pain in chest Pain radiates to chest Pain began gradually. Neuro: Level of Consciousness is awake, alert, obeys commands, Oriented to person, place, time, situation, Speech is normal. Cardiovascular: Chest pain. Respiratory: Airway is patent Respiratory effort is even, unlabored, Respiratory pattern is regular, symmetrical. 12:15 Reassessment: Patient appears in no apparent distress at this time. Patient and/or db family updated on plan of care and expected duration. Pain level reassessed. Patient is alert, oriented x 3, equal unlabored respirations, skin warm/dry/pink. 13:15 Reassessment: Patient appears in no apparent distress at this time. Patient and/or db family updated on plan of care and expected duration. Pain level reassessed. Patient is alert, oriented x 3, equal unlabored respirations, skin warm/dry/pink. Patient states feeling better. 14:15 Reassessment: Patient appears in no apparent distress at this time. Patient and/or db family updated on plan of care and expected duration. Pain level reassessed. Patient is alert, oriented x 3, equal unlabored respirations, skin warm/dry/pink. Vital Signs: 11:25 BP 164 / 88; Pulse 74; Resp 16; Temp 98.5(O); Pulse Ox 100% on R/A; Weight 81.65 kg; db Height 5 ft. 0 in. ; Pain 5/10; 12:30 BP 138 / 89; Pulse 59; Resp 16; Pulse Ox 97% on R/A; db 13:00 BP 129 / 86; Pulse 58; Resp 16; Pulse Ox 98% on R/A; db 14:00 BP 125 / 86; Pulse 58; Resp 16; Pulse Ox 98% on R/A; db 11:25 Body Mass Index 35.15 (81.65 kg, 152.4 cm) db 11:25 Pain Scale: Adult db ED Course: 11:15 Patient arrived in ED. am2 11:15 MICHAEL GLEASON is Private Physician. am2 11:16 Ernst Greenfield, RADHA is PHCP. pm1 11:16 Herman Grant DO is Attending Physician. pm1 11:27 Shakira Means, CARITO is Primary Nurse. db 11:30 Triage completed. db 11:30 Client placed on continuous cardiac and pulse oximetry monitoring. NIBP monitoring db applied. 11:31 Arm band placed on Patient placed in an exam room. db 11:40 EKG done, by ED staff. aw1 11:52 XRAY Chest (1 view) In Process Unspecified. EDMS 13:18 MICHAEL GLEASON is Referral Physician. pm1 14:41 Patient has correct armband on for positive identification. Bed in low position. Call db light in reach. Side rails up X 1. Provided Education on: DISCHARGE. 14:41 No provider procedures requiring assistance completed. IV discontinued, intact, db bleeding controlled, No redness/swelling at site. Patient maintains SpO2 saturation greater than 95% on room air. Administered Medications: 12:05 Drug: morphine IVP or IV 4 mg Route: IVP; Infused Over: 4 mins; Site: left antecubital; db 14:29 Follow up: Response: No adverse reaction db 12:05 Drug: Ondansetron IVP 4 mg Route: IVP; Site: left antecubital; db 14:30 Follow up: Response: No adverse reaction db 14:05 Drug: Ketorolac IVP 30 mg Route: IVP; Site: left antecubital; db 14:37 Follow up: Response: No adverse reaction db Medication: 14:43 VIS not applicable for this client. db Outcome: 13:18 Discharge ordered by MD. pm1 14:41 Discharged to home ambulatory. db 14:41 Condition: stable 14:41 Discharge instructions given to patient, Instructed on discharge instructions, follow up and referral plans. Prescriptions given X 2. 14:44 Patient left the ED. db Signatures: Dispatcher [employer] EDMS Ernst Greenfield NP HOTEL ASSOCIATE pm1 Opal Gipson am2 Shakira Means, CARITO RN db Tamiko Linton aw1
--- NOTE | 2023-03-29 13:19 | EDPHYS ---
Physician Documentation [facility] Name: Brenda Kan Age: 47 yrs Sex: Female : 1975 Arrival Date: 03/29/2023 Time: 11:14 Bed 17 Private MD: MICHAEL GLEASON ED Physician Herman Grant HPI: 03/29 11:31 This 47 yrs old Female presents to ER via Ambulatory with complaints of Chest pm1 Pain. 11:31 The patient or guardian reports chest pain that is located primarily in the anterior pm1 aspect of left upper chest. Onset: 3 day(s) ago. The pain does not radiate. Associated signs and symptoms: The patient has no apparent associated signs or symptoms, Pertinent negatives: abdominal pain, cough, dizziness, headache, nausea, shortness of breath, vomiting. The chest pain is described as sharp. Modifying factors: the symptoms are aggravated by cough, palpation of area. Severity of pain: in the emergency department the pain is unchanged. The patient has not experienced similar symptoms in the past. The patient has not recently seen a physician, the patient's primary care provider is Dr. Saeed GRAIN ELEVATOR OPERATOR at [facility]. 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 - Social history:: Smoking status: Patient denies any tobacco usage or history of. ROS: 11:31 Constitutional: Negative for fever, chills, and weight loss. pm1 11:31 Respiratory: Negative for shortness of breath, cough, wheezing, and pleuritic chest pain, Abdomen/GI: Negative for abdominal pain, nausea, vomiting, diarrhea, and constipation, Back: Negative for injury and pain, MS/Extremity: Negative for injury and deformity, Skin: Negative for injury, rash, and discoloration, Neuro: Negative for headache, weakness, numbness, tingling, and seizure. 11:31 Cardiovascular: Positive for chest pain, Negative for edema, palpitations. 11:31 All other systems are negative. Exam: 11:31 Constitutional: This is a well developed, well nourished patient who is awake, alert, pm1 and in no acute distress. Head/Face: Normocephalic, atraumatic. 11:31 Back: No spinal tenderness. No costovertebral tenderness. Full range of motion. Skin: Warm, dry with normal turgor. Normal color with no rashes, no lesions, and no evidence of cellulitis. MS/ Extremity: Pulses equal, no cyanosis. Neurovascular intact. Full, normal range of motion. 11:31 Chest/axilla: Inspection: normal, Palpation: tenderness, of the anterior aspect of left upper chest, focal point and reproduced with palpation and deep breathing, that totally reproduces the patient's complaints. 11:31 Cardiovascular: Exam negative for acute changes, Rate: normal, Rhythm: regular, Pulses: no pulse deficits are appreciated, Heart sounds: normal, normal S1and S2. 11:31 Respiratory: Exam negative for acute changes, respiratory distress, shortness of breath, Breath sounds: are clear throughout. 11:31 Abdomen/GI: Exam negative for acute changes, Inspection: abdomen appears normal, Palpation: abdomen is soft and non-tender, in all quadrants. 11:31 Neuro: Exam negative for acute changes, Orientation: is normal, Mentation: is normal, Motor: is normal, moves all fours. Vital Signs: 11:25 BP 164 / 88; Pulse 74; Resp 16; Temp 98.5(O); Pulse Ox 100% on R/A; Weight 81.65 kg; db Height 5 ft. 0 in. ; Pain 5/10; 12:30 BP 138 / 89; Pulse 59; Resp 16; Pulse Ox 97% on R/A; db 13:00 BP 129 / 86; Pulse 58; Resp 16; Pulse Ox 98% on R/A; db 14:00 BP 125 / 86; Pulse 58; Resp 16; Pulse Ox 98% on R/A; db 11:25 Body Mass Index 35.15 (81.65 kg, 152.4 cm) db 11:25 Pain Scale: Adult db MDM: 11:18 Patient medically screened. pm1 13:10 Data reviewed: vital signs. pm1 13:14 Differential diagnosis: acute myocardial infarction, chest wall pain, costochondritis, pm1 pneumonia, pulmonary embolus. 13:14 I considered the following discharge prescriptions or medication management in the pm1 emergency department Medications were administered in the Emergency Department. See NOV. 13:14 ECG:. pm1 13:14 ELIGIO Risk Score: TOTAL SCORE = 0. 03/29 11:30 Order name: Basic Metabolic Panel; Complete Time: 12:53 pm03/29 11:30 Order name: CBC with Diff; Complete Time: 12:49 pm03/29 11:30 Order name: D-Dimer; Complete Time: 13:10 pm03/29 11:30 Order name: LFT's; Complete Time: 12:53 pm03/29 11:30 Order name: Magnesium; Complete Time: 12:53 pm03/29 11:30 Order name: NT PRO-BNP; Complete Time: 12:53 pm03/29 11:30 Order name: PT-INR; Complete Time: 13:10 pm03/29 11:30 Order name: Troponin HS; Complete Time: 12:53 pm03/29 11:30 Order name: XRAY Chest (1 view); Complete Time: 12:11 pm03/29 11:30 Order name: EKG; Complete Time: 11:31 pm03/29 11:30 Order name: Cardiac monitoring; Complete Time: 11:52 pm03/29 11:30 Order name: EKG - Nurse/Tech; Complete Time: 11:36 pm03/29 11:30 Order name: IV Saline Lock; Complete Time: 12:18 pm03/29 11:30 Order name: Labs collected and sent; Complete Time: 12:18 pm03/29 11:30 Order name: O2 Per Protocol; Complete Time: 11:54 pm03/29 11:30 Order name: O2 Sat Monitoring; Complete Time: 11:54 pm1 EC:40 Rate is 61 beats/min. Rhythm is regular, Normal Sinus Rhythm. QRS [place] is Normal. [place] pm1 interval is normal. QRS interval is normal. QT interval is normal. No Q waves. T waves are Normal. No ST changes noted. Clinical impression: Normal ECG and Normal sinus rhythm with sinus arrythmia. 13:14 Rate is 61 beats/min. Rhythm is regular, Normal Sinus Rhythm. QRS [place] is Normal. [place] pm1 interval is normal. QRS interval is normal. QT interval is normal. No Q waves. T waves are Normal. No ST changes noted. Clinical impression: NOrmal sinus rhythm with sinus arrhythmia, Normal ECG. Administered Medications: 12:05 Drug: morphine IVP or IV 4 mg Route: IVP; Infused Over: 4 mins; Site: left antecubital; db 14:29 Follow up: Response: No adverse reaction db 12:05 Drug: Ondansetron IVP 4 mg Route: IVP; Site: left antecubital; db 14:30 Follow up: Response: No adverse reaction db 14:05 Drug: Ketorolac IVP 30 mg Route: IVP; Site: left antecubital; db 14:37 Follow up: Response: No adverse reaction db Disposition: 14:30 Co-signature as Attending Physician, Herman Grant DO I was immediately available on-site ms3 in the Emergency Department for consultation in the care of the patient. Disposition Summary: 03/29/23 13:18 Discharge Ordered Location: Home pm1 Problem: new pm1 Symptoms: have improved pm1 Condition: Stable pm1 Diagnosis - Chest pain, unspecified pm1 Followup: pm1 - With: Emergency Department - When: As needed - Reason: Worsening of condition Followup: pm1 - With: MICHAEL GLEASON - When: 2 - 3 days - Reason: Recheck today's complaints, Continuance of care, Re-evaluation by your physician Discharge Instructions: - Discharge Summary Sheet pm1 - Nonspecific Chest Pain, Adult pm1 Forms: - Medication Reconciliation Form pm1 - Thank You Letter pm1 - Antibiotic Education pm1 - Prescription Opioid Use pm1 - Patient Portal Instructions pm1 Prescriptions: - Cyclobenzaprine 10 mg Oral Tablet - take 1 tablet by ORAL route every 8 hours As needed; 30 tablet; Refills: 0, pm1 Product Selection Permitted - Diclofenac Sodium 75 mg Oral tablet,delayed release (DR/EC) - take 1 tablet by ORAL route 2 times per day As needed; 30 tablet; Refills: 0, pm1 Product Selection Permitted Signatures: Dispatcher [employer] Ernst Quiroga, RADHA GRAIN ELEVATOR OPERATOR pm1 Herman Grant DO DO ms3 Shakira Means, RN RN db
[2023-03-29] MEDS ORDERED: KETOROLAC 30 MG/ML INJ ONE (14:16)
[2023-03-29 15:02] VITALS: TEMP 98.5
[2023-03-29 15:11] VITALS: O2SAT 98
[2023-03-29 15:12] VITALS: BP 125/86
--- NOTE | 2023-03-30 13:27 | EKG ---
Test Date: 2023-03-29 Test Time: 11:31:53 Grading Machine Operator: WANDA MEASUREMENT RESULTS: Intervals: Rate: 61 W[place]: 142 QRSD: 82 QT: 394 QTc: 396 [place]: P: 63 WY: 142 QRS: 68 T: 50 INTERPRETIVE STATEMENTS: Normal sinus rhythm with sinus arrhythmia Normal ECG Compared to ECG 09/24/2016 07:20:29 Sinus bradycardia no longer present Electronically Signed On 03-30-23 13:25:12 CDT by Deon Amanda
== END 2023-03-29 14:44 | disposition home or self-care (01) ==
LOC: ER 11:14
DX: R07.9 Chest pain, unspecified (principal)
CPT/HCPCS: 93005; 85025; 80048; 36415; 83735; 85610; 85379; 80076; 84484; 83880; 71045; 96375; 96374; 99285; J2405

== ENCOUNTER → 2023-11-23 | Emergency (ER) | payer OTHER ==
[~2023-11-23] MED LIST: FAMOTIDINE 20 MG/2 ML VIAL IV ONE; NA CHLORIDE 0.9% 1,000 ML ONE
[2023-11-23 15:36] LABS: Absolute Basophils 0.1 K/uL (0-0.5); Absolute Lymphocytes (CBC) 1.9 K/uL (0.7-4.9); Absolute Monocytes 0.5 K/uL (0.1-1.3); Absolute Neutrophil 5.1 K/uL (1.8-8.0); Basophils % 0.7 % (0-1.3); Eosinophils % 0.4 % (0-4.4); Hematocrit 45.3 % (36.0-45.0); Hemoglobin 15.6 g/dL (12.0-15.0); Lymphocytes % 25.3 % (15.3-44.8); MCH 31.3 pg (27.0-35.0); MCHC 34.4 g/dL (32.0-36.0); MCV 90.9 fL (80-100); MPV 9.2 fL (7.6-11.3); Monocytes % 6.2 % (3.3-12.3); Neutrophils % 67.4 % (41.7-73.7); Platelets 241 thou/uL (152-406); RBC Red Blood Cell Count 4.99 M/uL (3.86-4.86); Red Cell Distribution Width 12.6 % (12.1-15.2)
[2023-11-23 15:53] LABS: Albumin 3.9 g/dL (3.4-5.0); Albumin/Globulin Ratio 1.1 (1.1-1.8); Anion Gap 10.9 mEq/L (5.0-15.0); Bilirubin Total 0.5 mg/dL (0.2-1.0); Globulin 3.6 g/dL (2.3-3.5); Potassium 3.9 mEq/L (3.5-5.1); Protein, Total 7.5 g/dL (6.4-8.2)
--- NOTE | 2023-11-23 16:40 | ER ---
Nurse's Notes [facility] Name: Brenda Kan Age: 48 yrs Sex: Female : 1975 Arrival Date: 11/23/2023 Time: 14:58 Bed 7 Private MD: MICHAEL GLEASON Diagnosis: Gastro-esophageal reflux disease without esophagitis Presentation: 11/22 15:03 Chief complaint: Patient states: was at PCP for a follow up and was dry heaving , has iw been getting bad for past 2 weeks , is not vomiting , she feels it in her throat and then she feels like she is going to retch, she also has a headache. Coronavirus screen: At this time, the client does not indicate any symptoms associated with coronavirus-19. Ebola Screen: Patient negative for fever greater than or equal to 101.5 degrees Fahrenheit, and additional compatible Ebola Virus Disease symptoms Patient denies exposure to infectious person. Patient denies travel to an Ebola-affected area in the 21 days before illness onset. No symptoms or risks identified at this time. Initial Sepsis Screen: Does the patient meet any 2 criteria? No. Patient's initial sepsis screen is negative. Does the patient have a suspected source of infection? No. Patient's initial sepsis screen is negative. Risk Assessment: Do you want to hurt yourself or someone else? Patient reports no desire to harm self or others. Onset of symptoms was November 11, 2023. 15:03 Method Of Arrival: Ambulatory iw 15:03 Acuity: ALEN 3 iw Historical: - Allergies: 15:07 No Known Allergies; iw - PMHx: 15:05 Endometrosis; iw - PSHx: 15:05 Kidey donor; partial hysterectomy; iw - Immunization history:: Adult Immunizations. - Social history:: Smoking status: Patient denies any tobacco usage or history of. Screenin:23 [facility] ED Fall Risk Assessment (Adult) History of falling in the last 3 months, hb including since admission No falls in past 3 months (0 pts) Confusion or Disorientation No (0 pts) Intoxicated or Sedated No (0 pts) Impaired Gait No (0 pts) Mobility Assist Device Used No (0 pt) Altered Elimination No (0 pt) Score/Fall Risk Level 0 - 2 = Low Risk Oriented to surroundings, Maintained a safe environment, Educated pt \T\ family on fall prevention, incl call for assistance when getting out of bed. Abuse screen: Denies threats or abuse. Denies injuries from another. Nutritional screening: No deficits noted. Tuberculosis screening: No symptoms or risk factors identified. Assessment: 15:30 General: Appears in no apparent distress. uncomfortable, Behavior is calm, cooperative. mb9 15:30 Pain: Denies pain. Neuro: Lakhani Agitation-Sedation Scale (RASS): 0 - Alert and Calm mb9 Level of Consciousness is awake, alert, obeys commands, Oriented to person, place, time, situation, Appropriate for age. Cardiovascular: Patient's skin is warm and dry. Respiratory: Airway is patent Respiratory effort is even, unlabored, Respiratory pattern is regular, symmetrical. GI: Abdomen is round non-distended, Bowel sounds present X 4 quads. Abd is soft and non tender X 4 quads. Reports nausea, dry heaving. : No signs and/or symptoms were reported regarding the genitourinary system. EENT: No signs and/or symptoms were reported regarding the EENT system. Derm: Skin is pink, warm \T\ dry. Musculoskeletal: Range of motion: intact in all extremities. 15:32 General: Appears uncomfortable, Behavior is calm, cooperative. Pain: Denies pain. kd3 Neuro: Level of Consciousness is awake, alert, obeys commands, Oriented to person, place, time, situation, Appropriate for age. 16:23 Reassessment: Patient appears in no apparent distress at this time. Patient and/or hb family updated on plan of care and expected duration. Pain level reassessed. Patient is alert, oriented x 3, equal unlabored respirations, skin warm/dry/pink. Vital Signs: 15:03 BP 153 / 95; Pulse 62; Resp 16; Temp 97.9; Pulse Ox 100% on R/A; Weight 92.08 kg; iw Height 5 ft. 0 in. ; 16:04 BP 132 / 78; Pulse 64; Resp 15; Pulse Ox 99% on R/A; mb9 16:23 BP 137 / 91; Pulse 60; Resp 15; Pulse Ox 96% on R/A; hb 15:03 Body Mass Index 39.65 (92.08 kg, 152.4 cm) iw ED Course: 15:00 Patient arrived in ED. mr 15:00 MICHAEL GLEASON is Private Physician. mr 15:01 Mercedes Greene FNP-C is PHCP. kb 15:01 Arjun Ibarra MD is Attending Physician. kb 15:05 Triage completed. iw 15:05 Arm band placed on. iw 15:06 Attending Physician role handed off by Arjun Ibarra MD cha 15:06 Yannick Diaz MD is Attending Physician. susy 15:09 Mercedes Greene FNP-C is PHCP. kb 15:15 Laurel Foss RN is Primary Nurse. mb9 15:24 CBC with Diff Sent. bc6 15:24 CMP Sent. bc6 15:24 Lipase Sent. bc6 15:24 Inserted saline lock: 20 gauge in right forearm, using aseptic technique. Blood bc6 collected. 16:23 Patient has correct armband on for positive identification. Placed in gown. Bed in low hb position. Call light in reach. Provided Education on: use of of call light. Client placed on continuous cardiac and pulse oximetry monitoring. NIBP monitoring applied. media monitor on. Pulse ox on. NIBP on. 16:23 Patient maintains SpO2 saturation greater than 95% on room air. hb 16:41 No provider procedures requiring assistance completed. IV discontinued, intact, mb9 bleeding controlled, No redness/swelling at site. Pressure dressing applied. Administered Medications: 15:52 Drug: NS 0.9% IV 1000 ml IV at 1000 ml once Route: IV; Rate: 1000 ml; Site: right kd3 forearm; 17:00 Follow up: Response: No adverse reaction; IV Status: Completed infusion mb9 18:00 Follow up: Response: No adverse reaction mb9 15:52 Drug: Famotidine IVP 20 mg IVP once; dilute with 10 mL 0.9% NaCl; give over 2 minutes kd3 Route: IVP; Site: right forearm; 17:00 Follow up: Response: No adverse reaction mb9 Outcome: 16:40 Discharge ordered by . kb 16:58 Discharged to home ambulatory, mb9 16:58 Condition: stable 16:58 Discharge instructions given to patient, Instructed on discharge instructions, follow up and referral plans. Demonstrated understanding of instructions, follow-up care, 16:58 Patient left the ED. mb9 Signatures: Mercedes Greene FNP-C APPRENTICE PLANT ATTENDANT-Ckb Yannick Diaz MD MD cha Rivera, Mary, [facility] mr Raquel Obrien, RN RN iw Ivana Gallegos, RN RN Maya Conley, RN RN kd3 Laurel Foss, RN RN mb9 Sravanthi Busch 6
--- NOTE | 2023-11-23 16:40 | EDPHYS ---
Physician Documentation [facility] Name: Brenda Kan Age: 48 yrs Sex: Female : 1975 Arrival Date: 11/23/2023 Time: 14:58 Bed 7 Private MD: MICHAEL GLEASON ED Physician Yannick Diaz HPI: 11/22 18:00 This 48 yrs old Female presents to ER via Ambulatory with complaints of Nausea.kb 18:00 Patient is a 48-year-old female who was sent from PCPs office for dry heaving. Patient kb states over the past 2 weeks intermittently she would feel something in her throat and then she would begin dry heaving. States she was never very nauseous and never threw up anything. Denies any abdominal pain. Reports intermittent headache. States she was seen by ENT who recommended that she follow-up with GI for an EGD, went to PCP today and was sent to the ER. Patient states she had plan to follow-up with GI. Historical: - Allergies: 15:07 No Known Allergies; iw - PMHx: 15:05 Endometrosis; iw - PSHx: 15:05 Kidey donor; partial hysterectomy; iw - Immunization history:: Adult Immunizations. - Social history:: Smoking status: Patient denies any tobacco usage or history of. ROS: 17:59 Constitutional: As per HPI kb 17:59 Abdomen/GI: Positive for nausea, Negative for abdominal pain, vomiting, 17:59 All other systems are negative, Exam: 17:59 Constitutional: This is a well developed, well nourished patient who is awake, alert, kb and in no acute distress. Head/Face: Normocephalic, atraumatic. ENT: Moist Mucous membranes Cardiovascular: Regular rate Respiratory: Respirations even and unlabored. No increased work of breathing. Talking in full sentences Abdomen/GI: Soft, non-tender. No distention Skin: Warm, dry with normal turgor. Normal color. MS/ Extremity: Pulses equal, no cyanosis. Neurovascular intact. Full, normal range of motion. Neuro: Awake and alert, GCS 15, oriented to person, place, time, and situation. Moves all extremities. Normal gait. Vital Signs: 15:03 BP 153 / 95; Pulse 62; Resp 16; Temp 97.9; Pulse Ox 100% on R/A; Weight 92.08 kg; iw Height 5 ft. 0 in. ; 16:04 BP 132 / 78; Pulse 64; Resp 15; Pulse Ox 99% on R/A; mb9 16:23 BP 137 / 91; Pulse 60; Resp 15; Pulse Ox 96% on R/A; hb 15:03 Body Mass Index 39.65 (92.08 kg, 152.4 cm) iw MDM: 15:02 Patient medically screened. kb 17:59 Differential diagnosis: gastritis, GERD. Data reviewed: vital signs, nurses notes. Test kb considered but Not performed: CT: ct abd considered, but pt does not want it at this time. STates she will follow up with GI. Counseling: I had a detailed discussion with the patient and/or guardian regarding the historical points, exam findings, and any diagnostic results supporting the discharge/admit diagnosis, lab results, the need for outpatient follow up, a body repairer, to return to the emergency department if symptoms worsen or persist or if there are any questions or concerns that arise at home. 11/22 15:09 Order name: CBC with Diff; Complete Time: 15:41 kb 11/22 15:09 Order name: CMP; Complete Time: 15:56 kb 11/22 15:09 Order name: Lipase; Complete Time: 15:56 kb 11/22 15:09 Order name: IV Saline Lock; Complete Time: 15:24 kb 11/22 15:09 Order name: Labs collected and sent; Complete Time: 15:24 kb Administered Medications: 15:52 Drug: NS 0.9% IV 1000 ml IV at 1000 ml once Route: IV; Rate: 1000 ml; Site: right kd3 forearm; 17:00 Follow up: Response: No adverse reaction; IV Status: Completed infusion mb9 18:00 Follow up: Response: No adverse reaction mb9 15:52 Drug: Famotidine IVP 20 mg IVP once; dilute with 10 mL 0.9% NaCl; give over 2 minutes kd3 Route: IVP; Site: right forearm; 17:00 Follow up: Response: No adverse reaction mb9 Disposition Summary: 11/23/23 16:40 Discharge Ordered Notes: Location: Home kb Condition: Stable kb Diagnosis - Gastro-esophageal reflux disease without esophagitis kb Followup: kb - With: Emergency Department - When: As needed - Reason: Worsening of condition Followup: kb - With: Private Physician - When: 2 - 3 days - Reason: Recheck today's complaints, Continuance of care, Re-evaluation by your physician Discharge Instructions: - Discharge Summary Sheet kb - Gastroesophageal Reflux Disease, Adult, [id number] kb Forms: - Medication Reconciliation Form kb - Thank You Letter kb - Antibiotic Education kb - Prescription Opioid Use kb - Patient Portal Instructions kb - Leadership Thank You Letter kb Signatures: Dispatcher [employer] EDMercedes Salazar, DEMO SPECIALIST-C DEMO SPECIALIST-Raquel Bolivar, RN RN Ivana Gallegos, RN RN Maya Conley RN RN kd3 Laurel Foss RN mb9
[2023-11-23 17:35] VITALS: BP 137/91; TEMP 97.9; O2SAT 96
== END ==
LOC: ER 14:58
DX: K21.9 Gastro-esophageal reflux disease without esophagitis (principal)
CPT/HCPCS: 96361; 85025; 36415; 83690; 80053; 96374; 99285; J7030